=== PATIENT | male | born 1990 | race Hispanic/Latino ===

== ENCOUNTER 2023-07-01 20:36 | Emergency (ER) | payer BC, SELFPAY ==
[2023-07-01] MEDS ORDERED: Ketorolac Tromethamine 30 MG (1 mL) VIAL ONE (21:29)
[2023-07-01 21:31] LABS: #Basophils 0.1 thou/uL (0.0-0.2); #Eosinphils 0.1 thou/uL (0.0-0.7); #Neutrophils 14.5 thou/uL (1.40-6.50); %Basophils 0.3 % (0.0-1.0); %Eosinophils 0.3 % (0.0-10.0); %Lymphocytes 17.1 % (21.0-51.0); %Monocytes 5.5 % (0.0-10.0); Hematocrit 48.1 % (42.0-52.0); Hemoglobin 15.3 g/dL (14.0-18.0); Mean Corpuscular HGB CONC 31.8 g/dL (32.0-36.0); Mean Corpuscular Hemoglobin 25.9 pg (27.0-31.0); Mean Corpuscular Volume 81.5 fl (78.0-98.0); Mean Platelet Volume 9.9 fL (7.4-10.4); Platelet Count 339 10x3/uL (130-400); RBC Distribution Width 13.5 % (11.5-14.5); White Blood Cell (WBC) Count 19.1 10x3/uL (4.8-10.8)
[2023-07-01 21:54] LABS: ALT (SGPT) 96 U/L (8-55); AST (SGOT) 46 U/L (5-34); Albumin 4.3 g/dL (3.5-5.0); Alkaline Phosphatase 212 U/L (40-110); Anion Gap 15 mmol/L (10-20); BUN (Urea Nitrogen) 14 mg/dL (8.9-20.6); Bilirubin, Total 2.3 mg/dL (0.2-1.2); Calc. Creatinine Clearance 0 mL/min (70-130); Calcium 9.5 mg/dL (7.8-10.44); Carbon Dioxide 22 mmol/L (22-29); Chloride 102 mmol/L (98-107); Estimated GFR 82; Globulin 3.6 g/dL (2.4-3.5); Glucose 117 mg/dL (70-105); Lipase 30 U/L (8-78); Potassium 4.7 mmol/L (3.5-5.1); Protein, Total 7.9 g/dL (6.0-8.3); Sodium 134 mmol/L (136-145)
[2023-07-01 21:58] LABS: Bacteria/HPF None Seen HPF (None Seen); Bilirubin Negative (Negative); Blood, Urine 2+ (Negative); CAUTI Indications for Culture Pelvic or flank pain; Clarity Clear (Clear); Glucose, Urine (Dipstick) Normal (Negative); Ketone, Urine Negative (Negative); Leukocyte 250 Leu/uL (Negative); Nitrite Negative (Negative); Protein, Urine (Dipstick) 30 mg/dL (Neg-Trace); RBC/HPF 21-50 HPF (0-3); Specific Gravity, Urine 1.035 (1.002-1.036); Squamous Epithelial None Seen HPF (0-3); Urobilinogen Greater than 12 mg/dL (Less than 2); WBC/HPF 21-50 HPF (0-3)
[2023-07-01 22:08] LABS: Urine Culture Reflex Yes Yes
[2023-07-01] MEDS ORDERED: Morphine 2 MG/ML VIAL ONE (22:29)
[2023-07-01] MEDS ORDERED: Sodium Chloride 0.9% 100 ML ONE (23:12)
[2023-07-01] MEDS ORDERED: Piperacillin/Tazobactam 4.5 GM VIAL ONE (23:12)
== END 2023-07-01 23:51 | disposition home or self-care (01) ==
LOC: ERS 20:36
DX: K57.92 Diverticulitis of intestine, part unspecified, without perforation or abscess without bleeding (principal); N20.0 Calculus of kidney
CPT/HCPCS: 36415; 74177; 80053; 81001; 83690; 85025; 87086; 96365; 96375; J1885; J2272; J2543; J3490

== ENCOUNTER 2025-03-21 17:53 | Inpatient (IN) | payer SELFPAY ==
[~2025-03-21 17:53] MED LIST: Iopamidol-370 76% 500 ML MDV (1 ML CHARGE) ONE
[2025-03-21 20:51] LABS: Bacteria/HPF None Seen HPF (None Seen); CAUTI Indications for Culture Dysuria,urgency,freq; Glucose, Urine (Dipstick) Normal (Negative); Leukocyte 250 Leu/uL (Negative); Protein, Urine (Dipstick) 10 mg/dL (Neg-Trace); Specific Gravity, Urine 1.022 (1.002-1.036); WBC/HPF 21-50 HPF (0-3)
[2025-03-21 21:04] LABS: Urine Culture Reflex Yes Yes
[2025-03-21 21:51] LABS: #Basophils 0.07 10x3/uL (0.0-0.2); #Eosinophils Less than 0.03 10x3/uL (0.0-0.7); #Monocytes 0.67 10x3/uL (0.11-0.59); #Neutrophils 11.80 10x3/uL (1.40-6.50); %Basophils 0.5 % (0.0-1.0); %Eosinophils 0.1 % (0.0-10.0); %Lymphocytes 18.5 % (21.0-51.0); %Monocytes 4.3 % (0.0-10.0); %Neutrophils 76.2 % (42.0-75.0); Hematocrit 47.3 % (42.0-52.0); Hemoglobin 15.2 g/dL (14.0-18.0); Mean Corpuscular Hemoglobin 25.4 pg (27.0-31.0); Mean Corpuscular Volume 79.1 fL (78.0-98.0); Platelet Count 303 10x3/uL (130-400); Red Blood Cell (RBC) Count 5.98 mill/uL (4.70-6.10); White Blood Cell (WBC) Count 15.47 10x3/uL (4.8-10.8)
[2025-03-21 22:03] LABS: ALT (SGPT) 94 U/L (Less than 45); AST (SGOT) 42 U/L (11-34); Albumin 4.5 g/dL (3.1-4.5); Alkaline Phosphatase 99 U/L (40-110); Anion Gap 11 mmol/L (10-20); BUN (Urea Nitrogen) 18 mg/dL (8.9-20.6); Bilirubin, Total 1.3 mg/dL (0.3-1.2); Calc. Creatinine Clearance 0 mL/min (70-130); Calcium 9.3 mg/dL (7.8-10.44); Carbon Dioxide 24 mmol/L (22-29); Chloride 104 mmol/L (98-107); Globulin 3.2 g/dL (2.4-3.5); Glucose 110 mg/dL (70-105); Potassium 4.4 mmol/L (3.5-5.1); Sodium 135 mmol/L (136-145)
[2025-03-21] MEDS ORDERED: cefTRIAXone (ROCEPHIN) 2 GM VIAL ONE (23:00)
[2025-03-22] MEDS ORDERED: HYDROmorphone 0.5 MG/0.5 ML SYRINGE ONE (02:27)
[2025-03-22 03:52] VITALS: BMI 35.8
[2025-03-22] MEDS: Enoxaparin 40 MG (0.4 mL) SYRINGE SC SCH (08:39)
[2025-03-22] MEDS: cefTRIAXone\\ROCEPHIN 1 GM in Sodium Chloride 0.9% 100 ML IVPB SCH (08:40)
[2025-03-22] MEDS: oxyCODONE/Acetaminophen 5 mg/325 mg Tablet PO PRN (08:41)
[2025-03-22] MEDS ORDERED: Lidocaine 1% PF 5 ML VIAL ONE (13:06)
[2025-03-22] MEDS ORDERED: fentaNYL PF 100 MCG/2 ML SYRINGE ONE (13:32)
[2025-03-22] MEDS ORDERED: PROPOFOL 200 MG/20 ML VIAL ONE (14:04)
[2025-03-22] MEDS ORDERED: Ondansetron PF 4 MG/2 ML Vial ONE (14:05)
[2025-03-23 07:39] LABS: Anion Gap 12 mmol/L (10-20); BUN (Urea Nitrogen) 12 mg/dL (8.9-20.6); Calc. Creatinine Clearance 171 mL/min (70-130); Calcium 8.3 mg/dL (7.8-10.44); Carbon Dioxide 25 mmol/L (22-29); Chloride 108 mmol/L (98-107); Glucose 88 mg/dL (70-105); Potassium 3.7 mmol/L (3.5-5.1); Sodium 141 mmol/L (136-145)
[2025-03-23 08:18] VITALS: BP 149/89; TEMP 98
[2025-03-23 10:31] LABS: #Basophils 0.04 10x3/uL (0.0-0.2); #Eosinophils 0.12 10x3/uL (0.0-0.7); #Monocytes 0.39 10x3/uL (0.11-0.59); #Neutrophils 4.81 10x3/uL (1.40-6.50); %Basophils 0.5 % (0.0-1.0); %Eosinophils 1.4 % (0.0-10.0); %Lymphocytes 38.4 % (21.0-51.0); %Monocytes 4.5 % (0.0-10.0); %Neutrophils 55.0 % (42.0-75.0); Hematocrit 43.8 % (42.0-52.0); Hemoglobin 13.6 g/dL (14.0-18.0); Mean Corpuscular Hemoglobin 25.7 pg (27.0-31.0); Mean Corpuscular Volume 82.6 fL (78.0-98.0); Platelet Count 276 10x3/uL (130-400); Red Blood Cell (RBC) Count 5.30 mill/uL (4.70-6.10); White Blood Cell (WBC) Count 8.73 10x3/uL (4.8-10.8)
== END 2025-03-23 12:04 | disposition home or self-care (01) | DRG 661 ==
LOC: ERS 17:53 → T4-B 03-22 01:39 → OBSVTOIN 03-22 12:40
PROVIDERS: ADMIT Internal Medicine; ATTEND Family Medicine
PROC: BT1F1ZZ Fluoroscopy of Left Kidney, Ureter and Bladder using Low Osmolar Contrast (ICD-10-PCS; principal; 2025-03-22)
PROC: 0T778DZ Dilation of Left Ureter with Intraluminal Device, Via Natural or Artificial Opening Endoscopic (ICD-10-PCS; 2025-03-22)
PROC: 3E03329 Introduction of Other Anti-infective into Peripheral Vein, Percutaneous Approach (ICD-10-PCS; 2025-03-22)
DX: N13.6 Pyonephrosis (principal); N20.0 Calculus of kidney; Z98.890 Other specified postprocedural states; Z90.49 Acquired absence of other specified parts of digestive tract; Z87.442 Personal history of urinary calculi
CPT/HCPCS: 36415; 74177; 74420; 80048; 80053; 81001; 83605; 83690; 85025; 87086; 93005; 93010; 96365; 96372; 96375; 96376; C2617; G0378; J0461; J0696; J1100; J1171; J1650; J2250; J2270; J2405; J2704; J7030; Q0162; Q9967

== ENCOUNTER 2025-04-16 12:05 | Day surgery (SDC) | payer SELFPAY ==
[2025-04-15 11:39] VITALS: BMI 33.3
[2025-04-16] MEDS ORDERED: fentaNYL PF 100 MCG/2 ML SYRINGE ONE (15:20)
[2025-04-16] MEDS ORDERED: Ondansetron PF 4 MG/2 ML Vial ONE (15:21)
[2025-04-16] MEDS ORDERED: Lidocaine 1% PF 5 ML VIAL ONE (15:21)
[2025-04-16] MEDS ORDERED: PROPOFOL 200 MG/20 ML VIAL ONE (15:39)
[2025-04-16] MEDS ORDERED: Rocuronium Bromide 10 MG/ML (10ML VIAL) ONE (15:39)
[2025-04-16] MEDS ORDERED: SUGAMMADEX SODIUM 200 MG/2 ML VIAL ONE (16:06)
[2025-04-16] MEDS ORDERED: HYDROcodone/Acetaminophen 5/325 mg Tablet ONE (18:38)
== END 2025-04-16 19:21 | disposition home or self-care (01) ==
LOC: SDC 12:05
PROVIDERS: ATTEND Urology
PROC: 0T778DZ Dilation of Left Ureter with Intraluminal Device, Via Natural or Artificial Opening Endoscopic (ICD-10-PCS; principal; 2025-04-16)
PROC: 0TC18ZZ Extirpation of Matter from Left Kidney, Via Natural or Artificial Opening Endoscopic (ICD-10-PCS; principal; 2025-04-16)
PROC: 0TC78ZZ Extirpation of Matter from Left Ureter, Via Natural or Artificial Opening Endoscopic (ICD-10-PCS; principal; 2025-04-16)
DX: N13.2 Hydronephrosis with renal and ureteral calculous obstruction (principal); N28.1 Cyst of kidney, acquired
CPT/HCPCS: 74420; 82365; 88300; C1747; C1758; C1769; C2617; J1100; J2405; J2704; J3010